=== PATIENT | female | born 2000 | race Caucasian/White ===

== ENCOUNTER 2025-04-27 20:47 | Emergency (ER) | payer OTHER, SELFPAY ==
[2025-04-27 21:27] LABS: Absolute Lymphocytes (CBC) 2.5 K/uL (0.7-4.9); Hematocrit 37.6 % (36.0-45.0); Hemoglobin 12.6 g/dL (12.0-15.0); MCH 28.3 pg (27.0-35.0); MCHC 33.4 g/dL (32.0-36.0); MCV 84.7 fL (80-100); MPV 7.3 fL (7.6-11.3); Nucleated RBC Absolute Count 0.0 (0-0); Nucleated Red Blood Cells % 0.0 % (0-0); RBC Red Blood Cell Count 4.44 M/uL (3.86-4.86); White Blood Count 9.80 thou/uL (4.3-10.9)
--- NOTE | 2025-04-27 21:59 | RAD REPORT ---
EXAMINATION: US FIRST TRIMESTER TRANSVAGINAL WITH DOPPLER CLINICAL INDICATION: with pelvic pain TECHNIQUE: Real-time obstetrical ultrasonography of the maternal pelvis and first trimester was performed transvaginally. Color and spectral Doppler evaluation of the ovaries was performed. COMPARISON: No prior exam. FINDINGS: The uterus measures 9 x 4 x 6 cm. A gestational sac is present within the endometrium measuring 6 mm. A yolk sac is present. pole not seen. Possible small periimplantation bleed Right ovary normal in size and echotexture. Blood flow present Left ovary not seen secondary to overlying bowel gas. Right and left adnexa unremarkable No significant free fluid IMPRESSION: Intrauterine with an estimated gestational age 5 weeks 2 days GERARDO 12/26/2025. pole not seen likely secondary to the early gestation. It is recommended that patient have a follow-up endovaginal sonogram in one week for reevaluation
[2025-04-27 22:05] LABS: ALT/SGPT 30.0 U/L (13-56); AST/SGOT 11.0 U/L (15-37); Albumin 3.1 g/dL (3.4-5.0); Albumin/Globulin Ratio 0.6 (1.1-1.8); Alkaline Phosphatase 84.0 U/L (45-117); Anion Gap 9.7 mEq/L (5.0-15.0); BUN Blood Urea Nitrogen 10.0 mg/dL (7-18); Globulin 4.9 g/dL (2.3-3.5); Glucose Level 91.0 mg/dL (74-106); HCG, Quantitative 2816.0 mIU/mL (1-3); Lipase 37.0 U/L (13-75); Potassium 3.7 mEq/L (3.5-5.1)
[2025-04-27] MEDS ORDERED: PROMETHAZINE 25 MG TABLET ONE (22:27)
[2025-04-27] MEDS ORDERED: ONDANSETRON 4 MG (ODT) TAB ONE (22:35)
--- NOTE | 2025-04-27 23:07 | ER ---
Nurse's Notes [facility] Name: Nenita Stout Age: 25 yrs Sex: Female : 2000 Arrival Date: 04/27/2025 Time: 20:47 Bed 19 Private MD: Diagnosis: Threatened ;Less than 8 weeks gestation of Presentation: 04/27 21:05 Chief complaint: Patient states: I have had some bad cramping for two days and began bm8 spotting this morning. I am 6 weeks . Coronavirus screen: Vaccine status: Patient reports being unvaccinated. At this time, the client does not indicate any symptoms associated with coronavirus-19. Ebola Screen: Patient negative for fever greater than or equal to 101.5 degrees Fahrenheit, and additional compatible Ebola Virus Disease symptoms Patient denies exposure to infectious person. Patient denies travel to an Ebola-affected area in the 21 days before illness onset. No symptoms or risks identified at this time. Initial Sepsis Screen: Does the patient meet any 2 criteria? No. Patient's initial sepsis screen is negative. Does the patient have a suspected source of infection? No. Patient's initial sepsis screen is negative. Risk Assessment: Do you want to hurt yourself or someone else? Patient reports no desire to harm self or others. Onset of symptoms was April 27, 2025 at 08:00. 21:05 Method Of Arrival: Ambulatory bm8 21:05 Acuity: BAILEY 3 bm8 Triage Assessment: 21:06 General: Appears in no apparent distress. uncomfortable, Behavior is calm, cooperative, bm8 appropriate for age. Pain: Complains of pain in suprapubic area Pain currently is 8 out of 10 on a pain scale. Quality of pain is described as aching, sharp. : Reports pain Pain is 8 out of 10 on a pain scale. vaginal bleeding that is spotty. 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 - Infectious Disease History:: Denies. - Social history:: Smoking status: Patient denies any tobacco usage or history of. Screenin:25 [facility] ED Fall Risk Assessment (Adult) History of falling in the last 3 months, kt5 including since admission No falls in past 3 months (0 pts) Confusion or Disorientation No (0 pts) Intoxicated or Sedated No (0 pts) Impaired Gait No (0 pts) Mobility Assist Device Used No (0 pt) Altered Elimination No (0 pt) Score/Fall Risk Level 0 - 2 = Low Risk Oriented to surroundings, Maintained a safe environment. Abuse screen: Denies threats or abuse. Abuse screen: Denies threats or abuse. Nutritional screening: No deficits noted. Tuberculosis screening: No symptoms or risk factors identified. Assessment: 21:25 General: Appears in no apparent distress. uncomfortable, Behavior is calm, cooperative, kt5 appropriate for age. Pain: Complains of pain in right lower quadrant and left lower quadrant Pain radiates to lumbar area, sacrum, left low back and right low back Pain currently is 6 out of 10 on a pain scale. Quality of pain is described as pressure, Pain began 2-3 days ago. Neuro: No deficits noted. Saleem Agitation-Sedation Scale (RASS): 0 - Alert and Calm Level of Consciousness is awake, alert, obeys commands, Oriented to person, place, time, situation, Appropriate for age. Cardiovascular: No deficits noted. Heart tones S1 S2 present Capillary refill < 3 seconds is brisk Clubbing of nail beds is absent JVD is absent. Respiratory: Airway is patent Trachea midline Respiratory effort is even, unlabored, Respiratory pattern is regular, symmetrical, Breath sounds are clear bilaterally. GI: No deficits noted. Abdomen is round non-distended, Bowel sounds present X 4 quads. Abd is soft X 4 quads Abdomen is tender to palpation in right lower quadrant and left lower quadrant Reports nausea. : No deficits noted. No signs and/or symptoms were reported regarding the genitourinary system. Urine is clear. : Denies burning with urination. : Reports pain in bilateral in suprapubic area in lower back since 2 days vaginal bleeding that is light flow, since this am pt approx 6 weeks and is here c/o of bilateral lower abd pain and cramping that radiates to bilateral lower back, pt states that she started with bright red vaginal bleeding this am, denies clots, pt also c/o of nausea. EENT: No deficits noted. No signs and/or symptoms were reported regarding the EENT system. Derm: No deficits noted. No signs and/or symptoms reported regarding the dermatologic system. Skin is intact, is healthy with good turgor, Skin is dry, Skin is pink, warm \T\ dry. Musculoskeletal: No deficits noted. No signs and/or symptoms reported regarding the musculoskeletal system. 23:06 Reassessment: Patient appears in no apparent distress at this time. No changes from al5 previously documented assessment. Patient and/or family updated on plan of care and expected duration. Pain level reassessed. Patient is alert, oriented x 3, equal unlabored respirations, skin warm/dry/pink. Vital Signs: 21:05 BP 116 / 70; Pulse 94; Resp 18; Temp 98.5; Pulse Ox 100% ; Weight 72.57 kg; Height 5 bm8 ft. 4 in. ; Pain 8/10; 21:25 BP 107 / 59; Pulse 82; Resp 16; Pulse Ox 99% ; kt5 22:00 BP 93 / 70; Pulse 86; Resp 16; Pulse Ox 100% on R/A; al5 23:00 BP 115 / 58; Pulse 89; Resp 15; Pulse Ox 100% on R/A; al5 21:05 Body Mass Index 27.46 (72.57 kg, 162.56 cm) bm8 21:05 Pain Scale: Adult bm8 ED Course: 20:52 Patient arrived in ED. gm2 21:06 Chino Walters DO is Attending Physician. tt7 21:06 Triage completed. bm8 21:06 Arm band placed on right wrist. bm8 21:18 Inserted saline lock: 20 gauge in right forearm, using aseptic technique. Blood kt5 collected. Flushed with 10 mL NS. 21:18 CBC with Diff Sent. kt5 21:18 CMP Sent. kt5 21:19 Lipase Sent. kt5 21:19 HCG-Quantitative Sent. kt5 21:25 Patient has correct armband on for positive identification. Bed in low position. Call kt5 light in reach. Side rails up X 1. Client placed on continuous cardiac and pulse oximetry monitoring. NIBP monitoring applied. Door closed. Noise minimized. Warm blanket given. Pillow given. 21:40 Langhorst, Bettie, RN is Primary Nurse. al5 21:52 Abdomen Pelvis Scan\E\US In Process Unspecified. EDMS 21:52 Transvaginal OB In Process Unspecified. EDMS 23:04 Gonzalo Mullen MD is Referral Physician. tt7 23:06 Assist provider with pelvic exam: Set up pelvic tray. Performed by Chino Walters DO alShiva Patient tolerated well. 23:07 Provided Education on: discharge follow up with OB. al5 23:07 IV discontinued, intact, bleeding controlled, No redness/swelling at site. Pressure al5 dressing applied. Administered Medications: 22:35 Not Given (Patient Refused): [id number] mg PO once tt7 22:38 Drug: Ondansetron PO 4 mg PO once Route: PO; al5 23:07 Follow up: Response: No adverse reaction; Nausea is decreased al5 Medication: 21:25 VIS not applicable for this client. kt5 Outcome: 23:06 Discharge ordered by MD. tt7 23:10 Discharged to home ambulatory, al5 23:10 Condition: good 23:10 Discharge instructions given to patient, Instructed on discharge instructions, follow up and referral plans. medication usage, Demonstrated understanding of instructions, follow-up care, medications, Prescriptions given X 1, 23:10 Patient left the ED. al5 Signatures: Dispatcher [employer] EDUT Mei Marie 2 Yrn Quesada, RN RN bm8 Bettie Cardona, RN RN al5 Josefina Kang RN RN kt5 Chino Walters DO DO tt7 Corrections: (The following items were deleted from the chart) 23:07 21:25 No provider procedures requiring assistance completed. kt5 al5
--- NOTE | 2025-04-27 23:07 | EDPHYS ---
Physician Documentation [facility] Name: Nenita Stout Age: 25 yrs Sex: Female : 2000 Arrival Date: 04/27/2025 Time: 20:47 Bed 19 Private MD: ED Physician Chino Walters HPI: 04/27 22:25 This 25 yrs old Female presents to ER via Ambulatory with complaints of Vaginal tt7 Bleeding, 6weeks preg, Abdominal Cramping. 22:25 Patient reports 2 days of lower abdominal cramping that is intermittent, moderate in tt7 severity, associated with small amount of vaginal bleeding, patient reports being approximately 6 weeks gestation of , no significant past medical history, no exacerbating or alleviating factors. 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 - Infectious Disease History:: Denies. - Social history:: Smoking status: Patient denies any tobacco usage or history of. ROS: 21:36 Constitutional: negative for fever. Cardiovascular: negative for chest pain. tt7 Respiratory: negative for shortness of breath. MS/Extremity: negative for injury and deformity. Skin: negative for rash. Neuro: negative for focal weakness. 21:36 Abdomen/GI: Positive for abdominal cramps, Negative for nausea and vomiting, 21:36 : Positive for vaginal bleeding, Exam: 21:37 Constitutional: vital signs reviewed, well appearing. Head/Face: normocephalic, tt7 atraumatic. Eyes: no conjunctival injection, anicteric sclerae. ENT: mucus membranes moist. Neck: trachea midline, no JVD, no meningismus. Chest/axilla: normal chest wall appearance and motion, nontender, no crepitus. Cardiovascular: regular rate and rhythm, no murmurs, no rubs, no lower extremity edema. Respiratory: normal respiratory effort, no accessory muscle use, lungs CTAB. Abdomen/GI: soft, nondistended, nontender, no guarding or rebound, negative Bennett's sign, no McBurney point tenderness. Back: normal ROM. Skin: warm, dry, intact, normal turgor, normal color, no rash. MS/ Extremity: normal ROM of extremities, no gross deformities. Neuro: alert and oriented with appropriate mental status, normal speech, follows commands, no focal neurologic deficits. Psych: appropriate mood and affect. 23:08 : Pelvic Exam: External exam: is normal, no erythema, no lesions, no ulcerations, no tt7 warts seen, Speculum exam: normal findings, no bleeding is noted, no cervicitis, os that is closed, no tissue in cervix is seen, no tissue in vagina is seen, Nurse Bettie present for exam. Vital Signs: 21:05 BP 116 / 70; Pulse 94; Resp 18; Temp 98.5; Pulse Ox 100% ; Weight 72.57 kg; Height 5 bm8 ft. 4 in. ; Pain 8/10; 21:25 BP 107 / 59; Pulse 82; Resp 16; Pulse Ox 99% ; kt5 22:00 BP 93 / 70; Pulse 86; Resp 16; Pulse Ox 100% on R/A; al5 23:00 BP 115 / 58; Pulse 89; Resp 15; Pulse Ox 100% on R/A; al5 21:05 Body Mass Index 27.46 (72.57 kg, 162.56 cm) bm8 21:05 Pain Scale: Adult bm8 MDM: 21:06 Medical Screening Exam initiated tt7 21:37 Differential diagnosis: abruptio placentae, ectopic , threatened Ab, tt7 inevitable Ab, complete Ab, missed Ab, ruptured ectopic , uterine fibroids. Data reviewed: vital signs, nurses notes, lab test result(s), radiologic studies. 22:28 ED course: Patient is well-appearing with a benign abdominal exam, workup initiated tt7 including laboratory studies, quantitative hCG, and obstetric ultrasound, laboratory studies are reassuring, no significant anemia, hCG is 2800, ultrasound confirms intrauterine with gestational age of 5 weeks and 2 days, patient did not take any fertility treatments, this effectively rules out ectopic , symptoms are likely due to threatened/inevitable versus implantation bleeding, or discussed the results of the workup thus far and need for close obstetric follow-up, will perform pelvic exam to assess the cervix to see if the os is open or closed. 23:10 ED course: Pelvic exam normal, no bleeding or tissue evident, os closed, diagnosis tt7 consistent with threatened , after completion of the patient's emergency department evaluation, I do not suspect a life-threatening or disabling process. Patient is medically stable and not in need of emergent medical intervention. I had a detailed discussion with the patient regarding the historical points, exam findings, emergency department evaluation, diagnostic results, and the discharge diagnosis. I instructed the patient on outpatient management of their condition. I discussed the need for outpatient follow-up with a primary care physician. I informed the patient on return precautions, including the need to return to the ED if symptoms do not improve, worsen, or if there are any questions or concerns that arise at home. The patient was discharged in stable condition. 04/27 21:06 Order name: HCG-Quantitative; Complete Time: 22:14 tt7 04/27 21:06 Order name: CBC with Diff; Complete Time: 22:14 tt7 04/27 21:06 Order name: CMP; Complete Time: 22:14 tt7 04/27 21:06 Order name: Lipase; Complete Time: 22:14 tt7 04/27 21:09 Order name: Rh Type tt7 04/27 21:08 Order name: US OB Limited tt7 04/27 21:19 Order name: Abdomen Pelvis Scan\E\US EDMS 04/27 21:22 Order name: Transvaginal OB; Complete Time: 22:14 EDMS 04/27 21:06 Order name: IV Saline Lock; Complete Time: 21:18 tt7 04/27 21:06 Order name: Labs collected and sent; Complete Time: 21:18 tt7 04/27 22:15 Order name: Pelvic Exam Setup; Complete Time: 23:06 tt7 Administered Medications: 22:35 Not Given (Patient Refused): [id number] mg PO once tt7 22:38 Drug: Ondansetron PO 4 mg PO once Route: PO; al5 23:07 Follow up: Response: No adverse reaction; Nausea is decreased al5 Disposition: 23:11 Co-signature as Attending Physician, Chino Walters DO. tt7 Disposition Summary: 04/27/25 23:06 Discharge Ordered Notes: Location: Home tt7 Problem: new tt7 Symptoms: have improved tt7 Condition: Stable tt7 Diagnosis - Threatened tt7 - Less than 8 weeks gestation of tt7 Followup: tt7 - With: Emergency Department - When: As needed - Reason: Followup: tt7 - With: Gonzalo Mullen MD - When: Tomorrow - Reason: Recheck today's complaints Discharge Instructions: - Discharge Summary Sheet tt7 - Threatened Miscarriage tt7 - Vaginal Bleeding During , First Trimester tt7 Forms: - Medication Reconciliation Form tt7 - Antibiotic Education tt7 - Prescription Opioid Use tt7 - Patient Portal Instructions tt7 - Leadership Thank You Letter tt7 Prescriptions: - Zofran 4 mg Oral tablet - take 1 tablet ORAL route every 8 hours As needed; 20 tablet; Refills: 0, tt7 Product Selection Permitted Signatures: Dispatcher [employer] EDAK Yrn Quesada RN RN bm8 Bettie Cardona RN RN al5 Chino Walters, DO tt7 Corrections: (The following items were deleted from the chart) 21:22 21:11 TRANSVAG OB ordered. [facility] EDAK 22:31 22:28 ED course: Patient is well-appearing with a benign abdominal exam, workup tt7 initiated including laboratory studies, quantitative hCG, Rh status, and obstetric ultrasound, laboratory studies are reassuring, no significant anemia,. tt7
[2025-04-28 00:44] VITALS: TEMP 98.5
[2025-04-28 00:51] VITALS: O2SAT 100
[2025-04-28 00:52] VITALS: BP 115/58
== END 2025-04-27 23:10 | disposition home or self-care (01) ==
LOC: ER 20:47
DX: O20.0 Threatened abortion (principal); Z3A.01 Less than 8 weeks gestation of pregnancy
CPT/HCPCS: 85025; 36415; 84702; 83690; 80053; 93975; 76817; 99284; Q0162; Q0169